=== PATIENT | male | born 1970 | race Two or more races ===

== ENCOUNTER 2023-06-10 17:08 | Emergency (ER) | payer BC ==
[~2023-06-10] VITALS: Ht 170.2 cm; Wt 83.9 kg
[2023-06-10 17:51] LABS: BASOPHILS # (AUTO) 0.1 K/uL (0.0-0.2); BASOPHILS % (AUTO) 0.6 % (0.0-2.0); EOSINOPHILS # (AUTO) 0.1 K/uL (0.0-0.7); EOSINOPHILS % (AUTO) 1.2 % (0.0-6.0); HEMATOCRIT 42 % (39-51); HEMOGLOBIN 13.7 g/dL (13.5-17.5); LYMPHOCYTES # (AUTO) 2.4 K/uL (0.8-4.8); LYMPHOCYTES % (AUTO) 21.2 % (20.0-44.0); MEAN CORPUSCULAR HEMOGLOBIN 30 PG (26.0-33.0); MEAN CORPUSCULAR HGB CONC 33 g/dl (31.0-36.0); MEAN CORPUSCULAR VOLUME 91 fL (80-96); MONOCYTES # (AUTO) 0.9 K/uL (0.1-1.30); MONOCYTES % (AUTO) 7.6 % (2.0-12.0); NEUTROPHILS # (AUTO) 7.9 K/uL (1.8-8.9); NEUTROPHILS % (AUTO) 69.4 % (43.0-81.0); PLATELET COUNT (AUTO) 430 K/uL (150-450); RED BLOOD CELL COUNT(AUTO) 4.59 MIL/uL (4.5-6.0); RED CELL DISTRIBUTION WIDTH 13.1 % (11.5-15.0); WHITE BLOOD COUNT (AUTO) 11.4 K/uL (4.3-11.0)
[2023-06-10 18:07] LABS: CARBON DIOXIDE 23 mmol/L (21-32); CHLORIDE 104 mmol/L (98-107); CREATININE 1.7 mg/dL (0.6-1.3); GLUCOSE 105 mg/dL (74-106); POTASSIUM 3.7 mmol/L (3.5-5.1); SODIUM SERUM 141 mmol/L (136-145); UREA NITROGEN, BLOOD 21 mg/dL (7-18)
[2023-06-10 18:15] LABS: ALANINE AMINOTRANSFERASE 31 U/L (12-78); ALBUMIN 4.9 g/dL (3.4-5.0); ALKALINE PHOSPHATASE 45 U/L (46-116); ASPARTATE AMINOTRANSFERASE 18 U/L (15-37); BILIRUBIN,DIRECT 0.2 mg/dL (0.0-0.2); BILIRUBIN,TOTAL 0.8 mg/dL (0.2-1.0); NT-PRO BNP 37 pg/mL (0-125); TOTAL PROTEIN, SERUM 8.5 g/dL (6.4-8.2)
[2023-06-10] MEDS ORDERED: IV NS 0.9% 1,000 ML BAG IV ONE (20:00)
[2023-06-10 21:05] VITALS: BP 107/83; TEMP 98.4; O2SAT 97
== END 2023-06-10 21:05 | disposition home or self-care (01) ==
LOC: ER 17:19
DX: N18.9 Chronic kidney disease, unspecified (principal); R06.00 Dyspnea, unspecified; R42 Dizziness and giddiness; Z60.2 Problems related to living alone
CPT/HCPCS: 99285; 96360; 71045; 93005 ×2; 85025; 80048; 80076; 85378; 36415; 84484 ×2; 83880; J7030